=== PATIENT | male | born 1980 | race Caucasian/White ===

== ENCOUNTER → 2019-06-22 | Outpatient (CLI) | payer OTHER ==
--- NOTE | 2019-06-22 13:19 | RADIOLOGY REPORT (SQ) ---
EXAM DESCRIPTION: CT SINUSES FOR ENT COMPLETED DATE/TIME: 06/22/2019 12:38 pm REASON FOR STUDY: J32.9 CHRONIC SINUSITIS, UNSPECIFIED J32.9 CHRONIC SINUSITIS, UNSPECIFIED J30.9 ALLERGIC RHINITIS, UNSPECIFIED COMPARISON: None. TECHNIQUE: Noncontrast scanning through the paranasal sinuses using bone algorithm. Reconstructed MPR images reviewed. All images stored on PACS. All CT scanners at this facility use dose modulation, iterative reconstruction, and/or weight based d osing when appropriate to reduce radiation dose to as low as reasonably achievable (ALARA). [facility]: Dose Right [facility]: CareDose [facility]: Dose Right [facility]: Teradose 4D [facility]: Symcat RADIATION DOSE: 47mGy. LIMITATIONS: None FINDINGS: Right sinuses and drainage pathways: Post-surgical changes: None. Frontal sinus: Normal. Frontoethmoidal Recess: Normal. Anterior Ethmoid Sinuses: Normal. Posterior Ethmoid Sinuses: Normal. Sphenoid Sinus: Normal. Sphenoethmoidal Recess: Normal. Maxillary Sinus: Normal. Ostiomeatal Complex: Patent. Left Sinuses and Drainage Pathways: Post-Surgical Changes: None. Frontal Sinus: Normal. Frontoethmoidal Recess: Normal. Anterior Ethmoid Sinuses: Normal. Posterior Ethmoid Sinuses: Normal. Sphenoid Sinus: Normal. Sphenoethmoidal Recess: Normal. Maxillary Sinus: Normal. Ostiomeatal Complex: Patent. Right Olfactory Fossa: No polyps. Left Olfactory Fossa: No polyps. Middle Turbinate Kiley Bull[place]: No. Paradoxical Middle Turbinate: No. Atelectatic Uncinated Process: Pneumatized right uncinate process on coronal image 103 Frontal Lele Cell Type I: No. Frontal Lele Cell Type II: No. Interfrontal Sinus Septal Cell: None. Supra-Orbital Ethmoid: None. Frontal Bullar Cell: On the right Suprabullar Bullar Cell: None. Sphenoethmoidal ([place]) Cell: None. Pneumatization of the Anterior Clinoid Processes: No Hypoplastic Maxillary Sinus: None. Osteoneogenesis: None. Bone Dehiscence:None. Nasal Cavity: Normal. Nasal Septum: Leftward nasal septal deviation with nasal septal spur Anatomic Variants: Right Vidian Canal: Normal. Left Vidian Canal: Normal. IMPRESSION: NO EVIDENCE OF ACUTE OR CHRONIC SINUSITIS. TECHNICAL DOCUMENTATION: JOB ID: [id number] Quality ID # [id number]: Final reports with documentation of one or more dose reduction techniques (e.g., Au tomated exposure control, adjustment of the mA and/or kV according to patient size, use of iterative reconstruction technique) 2010 [employer]- All Rights Reserved Reading location - IP/workstation name: [email or web address]
== END ==
LOC: RAD 12:14
PROVIDERS: ATTEND Otolaryngology
DX: J32.9 Chronic sinusitis, unspecified (principal); J30.9 Allergic rhinitis, unspecified
CPT/HCPCS: 70486

== ENCOUNTER → 2019-06-22 | Outpatient (CLI) | payer OTHER | LOC: OD 11:49 | PROVIDERS: ATTEND Otolaryngology | DX: J30.9 Allergic rhinitis, unspecified (principal) | CPT/HCPCS: 36415; 82785; 86003 ==